=== PATIENT | female | born 1960 ===

== ENCOUNTER 2018-10-28 07:58 | Day surgery (SDC) | payer MEDICAID ==
[2018-10-28 08:19] VITALS: BMI 37.9
[2018-10-28] MEDS ORDERED: Propofol 10 mg/ml Inj (20 ML) ONE (09:45)
[2018-10-28] MEDS ORDERED: Lidocaine Hydrochloride 5 ML INJ ONE (09:45)
[2018-10-28] MEDS ORDERED: Lactated Ringer's 500 ML IV SCH (10:00)
[2018-10-28 10:25] VITALS: O2SAT 100
[2018-10-28 11:09] VITALS: PULSE 65
[2018-10-28 11:51] VITALS: BP 95/45; RESP 21; TEMP 97
== END 2018-10-28 11:30 | disposition home or self-care (01) ==
LOC: C.ENDO 07:58
PROVIDERS: ATTEND Internal Medicine Gastroenterology
DX: K51.011 Ulcerative (chronic) pancolitis with rectal bleeding (principal); K64.1 Second degree hemorrhoids; I10 Essential (primary) hypertension; E11.9 Type 2 diabetes mellitus without complications; J44.9 Chronic obstructive pulmonary disease, unspecified; E78.5 Hyperlipidemia, unspecified; Z98.51 Tubal ligation status; Z98.890 Other specified postprocedural states; Z79.84 Long term (current) use of oral hypoglycemic drugs; Z79.899 Other long term (current) drug therapy
CPT/HCPCS: 45380; 82948; 88305; J2704; J7120